=== PATIENT | female | born 1955 | race Caucasian/White ===

== ENCOUNTER 2017-03-04 11:11 | Emergency (ER) | payer MEDICARE ==
[~2017-03-04] VITALS: Ht 160 cm; Wt 84.0 kg
[~2017-03-04 11:11] MED LIST: AMLO5TAB22 PO; ASPI81TA82 PO; BACL20 PO; CARV6.252 PO; CYCL-36 PO; D32000TA PO; FAMO40TA PO; IBUP-232 PO; LASI20TA PO; MELO7.5 PO; MORP1INJ45 PO; NAPR-576 PO; NEUR800T PO; PERC10TA27 PO
[2017-03-04 11:15] VITALS: BP 195/110; PULSE 93; RESP 16; TEMP 98.4; O2SAT 97
[2017-03-04 11:25] LABS: BLOOD, URINE NEG (NEG); GLUCOSE,URINE NEG (NEG); KETONE, URINE NEG (NEG); NITRITE,URINE NEG (NEG)
[2017-03-04] MEDS ORDERED: ASPI-516 CHEW (11:25)
[2017-03-04] MEDS ORDERED: amLODIPine BESYLATE 5 MG TAB PO ONE (11:30)
[2017-03-04 11:31] LABS: COMMENT (UR) CULT NOT INDICATED; CULTURE IF INDICATED CULT NOT INDICATED; METHOD OF COLLECTION CLEAN CATCH; RBC, URINE 0-3 /hpf (0-3); SQUAMOUS EPITHELIAL CELL URINE 0-5 /hpf (0-5); URINE COLOR YELLOW (YELLW/STRAW)
[2017-03-04] MEDS ORDERED: SODIUM CHLOR 0.9% 1000 ML INJ 1,000 ML IV SCH (11:34)
--- NOTE | 2017-03-04 11:34 | PD ---
HPI Chief Complaint: Complaint Time Seen by Provider: 11:24 Travel History International Travel<30 days: No Contact w/Intl Traveler<30days: No Traveled to known affect area: No History of Present Illness HPI The patient is a 61-year-old female who presents emergency department for left flank pain. The patient notes left flank pain for the last 2 days, located left flank, associated with some dysuria, frequency, and urgency. The patient denies any hematuria. She does have a previous history of bladder infections, denies any known history of nephrolithiasis. She does complain of mild nausea but denies any vomiting, diarrhea, or abdominal pain. She denies any CC fever, chills, or sweats. The patient does have a history of hypertension, stopped taking Norvasc 5 mg daily approximately one year ago. She denies any current headache, chest pain, or shortness of breath. Symptoms are mild to moderate, possibly exacerbated by underlying kidney infection, and there are no current alleviating factors. The patient was seeing Dr Donaldson, however, has not seen Dr. Donaldson in over one years duration. PFSH Past Medical History Arthritis: Yes Anxiety: Yes Cerebrovascular Accident: Yes (2012) GERD: Yes Hypertension: Yes Migraines: Yes Menopausal: Yes Past Surgical History Appendectomy: Yes Cholecystectomy: Yes Other Surgery: Yes (left wrist x 2, left elbow, lumbar 3, 4) Social History Alcohol Use: Yes (occas. like once a week mix drinks) Tobacco Use: Yes (5-6 cigs a day/ trying to quit) Substance Use: No Allergies-Medications (Allergen,Severity, Reaction): Coded Allergies: benazepril (Unverified Allergy, Severe, HYPOTENSION, 03/04/17) captopril (Unverified Allergy, Severe, HYPOTENSION, 03/04/17) enalaprilat (Unverified Allergy, Severe, HYPOTENSION, 03/04/17) fosinopril (Unverified Allergy, Severe, HYPOTENSION, 03/04/17) lisinopril (Unverified Allergy, Severe, HYPOTENSION, 03/04/17) quinapril (Unverified Allergy, Severe, HYPOTENSION, 03/04/17) penicillin G (Unverified Allergy, Unknown, CANT REMEMBER PER PT, 03/04/17) Reported Meds & Prescriptions Reported Meds & Active Scripts Active Reported Aspirin 81 Mg Chew 81 Mg CHEW DAILY Review of Systems Except as stated in HPI: all other systems reviewed are Neg General / Constitutional: No: Fever, Chills HENT: No: Headaches, Lightheadedness Cardiovascular: No: Chest Pain or Discomfort Respiratory: No: Shortness of Breath Gastrointestinal: Positive: Nausea, No: Vomiting, Diarrhea, Abdominal Pain Genitourinary: Positive: Urgency, Frequency, Dysuria, Flank Pain, No: Hematuria , Pelvic Pain Skin: No Rash Physical Exam Narrative GENERAL: Awake, alert, pleasant 61-year-old female who appears her stated age and is in no acute respiratory distress. SKIN: Focused skin assessment warm/dry. No stigmata of shingles noted over the left flank. HEAD: Atraumatic. Normocephalic. EYES: Pupils equal and round. No scleral icterus. No injection or drainage. ENT: No nasal bleeding or discharge. Mucous membranes pink and moist. NECK: Trachea midline. No JVD. CARDIOVASCULAR: Regular rate and rhythm. No murmur appreciated. RESPIRATORY: No accessory muscle use. Clear to auscultation. Breath sounds equal bilaterally. GASTROINTESTINAL: Abdomen soft, non-tender, nondistended. No suprapubic tenderness. Back: No CVA tenderness. No pain elicited over palpation of the paravertebral muscles. Pain is not elicited with rotation, flexion, or extension of the thorax. MUSCULOSKELETAL: No obvious deformities. No clubbing. No cyanosis. No edema. NEUROLOGICAL: Awake and alert. No obvious cranial nerve deficits. Motor grossly within normal limits. Normal speech. PSYCHIATRIC: Appropriate mood and affect; insight and judgment normal. Data Data Last Documented VS Vital Signs Date Time Temp Pulse Resp B/P (MAP) Pulse Ox O2 Delivery O2 Flow Rate FiO2 03/04/17 12:06 18 96 Room Air 03/04/17 12:05 84 03/04/17 11:15 98.4 Orders Orders Urinalysis - C+S If Indicated (03/04/17 11:17) Amlodipine (Norvasc) (03/04/17 11:30) Complete Blood Count With Diff (03/04/17 11:34) Comprehensive Metabolic Panel (03/04/17 11:34) Lipase (03/04/17 11:34) Ct Abd/Pel W/O Iv Contrast (03/04/17 11:34) Iv Access Insert/Monitor (03/04/17 11:34) Ecg Monitoring (03/04/17 11:34) Oximetry (03/04/17 11:34) Ondansetron Inj (Zofran Inj) (03/04/17 11:45) Sodium Chlor 0.9% 1000 Ml Inj (Ns 1000 M (03/04/17 11:34) Sodium Chloride 0.9% Flush (Ns Flush) (03/04/17 11:45) Ketorolac Inj (Toradol Inj) (03/04/17 11:45) Labs Laboratory Tests Test 03/04/17 11:20 03/04/17 11:45 Urine Collection Type CLEAN CATCH Urine Color YELLOW Urine Turbidity CLEAR Urine pH 6.0 Urine Specific [place] 1.020 Urine Protein NEG mg/dL Urine Glucose (UA) NEG mg/dL Urine Ketones NEG mg/dL Urine Occult Blood NEG Urine Nitrite NEG Urine Bilirubin NEG Urine Leukocyte Esterase NEG Urine RBC 0-3 /hpf Urine Squamous Epithelial Cells 0-5 /hpf Microscopic Urinalysis Comment CULT NOT INDICATED Urine Collection Time 11:20 White Blood Count 7.9 TH/MM3 Red Blood Count 4.71 MIL/MM3 Hemoglobin 14.6 GM/DL Hematocrit 44.6 % Mean Corpuscular Volume 94.6 FL Mean Corpuscular Hemoglobin 31.1 PG Mean Corpuscular Hemoglobin Concent 32.9 % Red Cell Distribution Width 13.4 % Platelet Count 362 TH/MM3 Mean Platelet Volume 8.6 FL Neutrophils (%) (Auto) 54.4 % Lymphocytes (%) (Auto) 37.7 % Monocytes (%) (Auto) 4.9 % Eosinophils (%) (Auto) 1.8 % Basophils (%) (Auto) 1.2 % Neutrophils # (Auto) 4.3 TH/MM3 Lymphocytes # (Auto) 3.0 TH/MM3 Monocytes # (Auto) 0.4 TH/MM3 Eosinophils # (Auto) 0.1 TH/MM3 Basophils # (Auto) 0.1 TH/MM3 CBC Comment DIFF FINAL Differential Comment Blood Urea Nitrogen 16 MG/DL Creatinine 0.94 MG/DL Random Glucose 94 MG/DL Total Protein 8.0 GM/DL Albumin 3.9 GM/DL Calcium Level 9.3 MG/DL Alkaline Phosphatase 94 U/L Aspartate Amino Transf (AST/SGOT) 20 U/L Alanine Aminotransferase (ALT/SGPT) 39 U/L Total Bilirubin 0.4 MG/DL Sodium Level 139 MEQ/L Potassium Level 4.3 MEQ/L Chloride Level 106 MEQ/L Carbon Dioxide Level 27.9 MEQ/L Anion Gap 5 MEQ/L Estimat Glomerular Filtration Rate 60 ML/MIN Lipase 140 U/L MDM Medical Decision Making Medical Screen Exam Complete: Yes Emergency Medical Condition: Yes Medical Record Reviewed: Yes Interpretation(s) Laboratory Tests Test 03/04/17 11:20 03/04/17 11:45 Urine Collection Type CLEAN CATCH Urine Color YELLOW Urine Turbidity CLEAR Urine pH 6.0 Urine Specific [place] 1.020 Urine Protein NEG mg/dL Urine Glucose (UA) NEG mg/dL Urine Ketones NEG mg/dL Urine Occult Blood NEG Urine Nitrite NEG Urine Bilirubin NEG Urine Leukocyte Esterase NEG Urine RBC 0-3 /hpf Urine Squamous Epithelial Cells 0-5 /hpf Microscopic Urinalysis Comment CULT NOT INDICATED Urine Collection Time 11:20 White Blood Count 7.9 TH/MM3 Red Blood Count 4.71 MIL/MM3 Hemoglobin 14.6 GM/DL Hematocrit 44.6 % Mean Corpuscular Volume 94.6 FL Mean Corpuscular Hemoglobin 31.1 PG Mean Corpuscular Hemoglobin Concent 32.9 % Red Cell Distribution Width 13.4 % Platelet Count 362 TH/MM3 Mean Platelet Volume 8.6 FL Neutrophils (%) (Auto) 54.4 % Lymphocytes (%) (Auto) 37.7 % Monocytes (%) (Auto) 4.9 % Eosinophils (%) (Auto) 1.8 % Basophils (%) (Auto) 1.2 % Neutrophils # (Auto) 4.3 TH/MM3 Lymphocytes # (Auto) 3.0 TH/MM3 Monocytes # (Auto) 0.4 TH/MM3 Eosinophils # (Auto) 0.1 TH/MM3 Basophils # (Auto) 0.1 TH/MM3 CBC Comment DIFF FINAL Differential Comment Blood Urea Nitrogen 16 MG/DL Creatinine 0.94 MG/DL Random Glucose 94 MG/DL Total Protein 8.0 GM/DL Albumin 3.9 GM/DL Calcium Level 9.3 MG/DL Alkaline Phosphatase 94 U/L Aspartate Amino Transf (AST/SGOT) 20 U/L Alanine Aminotransferase (ALT/SGPT) 39 U/L Total Bilirubin 0.4 MG/DL Sodium Level 139 MEQ/L Potassium Level 4.3 MEQ/L Chloride Level 106 MEQ/L Carbon Dioxide Level 27.9 MEQ/L Anion Gap 5 MEQ/L Estimat Glomerular Filtration Rate 60 ML/MIN Lipase 140 U/L CT of the abdomen and pelvis reveals no renal calculi or hydronephrosis. Diverticulosis without diverticulitis. Status post cholecystectomy. The lower lungs are clear. Differential Diagnosis Differential diagnosis includes pyelonephritis, UTI, nephrolithiasis, diverticulitis, pancreatitis, shingles, lower lobe pneumonia. Narrative Course A UA was sent to lab. The patient was administered Norvasc 5 mg orally for pain. The patient's UA was negative, therefore, IV was established, labs are drawn and sent, and a noncontrast CT of the abdomen/pelvis was obtained. The patient's lower lungs are clear, no evidence of pneumonia. CT is negative for renal calculi, hydronephrosis, does reveal diverticulosis without diverticulitis , otherwise unremarkable except for chronic changes. UA was negative, no evidence of hematuria or infection. Lipase level is normal. Patient does have left mid back pain and flank pain, may be musculoskeletal in origin. The patient will be placed back on Norvasc for hypertension will be treated with hydrocodone and Norflex as needed for pain, is also advised to take over-the- counter ibuprofen as needed. She will be provided a copy of her CT results and lab results at discharge. He is advised to follow-up with her primary physician and return if symptoms worsen or progress. Diagnosis Primary Impression: Left flank pain Patient Instructions: General Instructions Additional Instructions: Please provide the patient a copy of her labs and CT results at discharge. Medications as directed. Follow-up with a primary physician. Return if symptoms worsen or progress. Med/Other Pt SpecificInfo: Prescription(s) given Scripts Amlodipine (Norvasc) 5 Mg Tab 5 MG PO DAILY for Blood Pressure Management, #30 TAB 2 Refills Prov: Ravi Mireles MD 03/04/17 Hydrocodone-Acetaminophen ([place]) 5 Mg-325 Mg Tab 1 TAB PO Q6H Y for PAIN, #12 TAB 0 Refills Prov: Ravi Mireles MD 03/04/17 Orphenadrine ER 12 HR (Orphenadrine CR) 100 Mg Tab 100 MG PO Q12HR for Muscle Spasm for 10 Days, #60 TAB 0 Refills Prov: Ravi Mireles MD 03/04/17 Disposition: 01 DISCHARGE HOME Condition: Stable Ravi Mireles MD Mar 04, 2017 11:34
[2017-03-04] MEDS ORDERED: SODIUM CHLORIDE 0.9% FLUSH 10 ML FLUSH IV FLUSH PRN (11:45)
[2017-03-04] MEDS ORDERED: KETOROLAC TROMETHAMINE 30 MG/ML (IVP) VIAL IVP ONE (11:45)
[2017-03-04] MEDS ORDERED: ONDANSETRON HCL 4 MG/2 ML VIAL IVP ONE (11:45)
[2017-03-04 11:54] LABS: AUTOMATED NEUTROPHIL # 4.3 TH/MM3 (1.8-7.7); BASOPHIL # 0.1 TH/MM3 (0-0.2); BASOPHIL % 1.2 % (0.0-2.0); EOSINOPHIL # 0.1 TH/MM3 (0-0.4); EOSINOPHIL % 1.8 % (0.0-4.0); HEMATOCRIT 44.6 % (35.0-46.0); LYMPH % 37.7 % (9.0-44.0); MEAN CELL VOLUME 94.6 FL (80.0-100.0); MEAN CORPUSCULAR HEMOGLOBIN 31.1 PG (27.0-34.0); MEAN CORPUSCULAR HGB CONC 32.9 % (32.0-36.0); MONO % 4.9 % (0.0-8.0); NEUT % 54.4 % (16.0-70.0); PLATELET COUNT 362 TH/MM3 (150-450); RED BLOOD COUNT 4.71 MIL/MM3 (4.00-5.30); RED CELL DISTRIBUTION WIDTH 13.4 % (11.6-17.2); WHITE BLOOD COUNT 7.9 TH/MM3 (4.0-11.0)
[2017-03-04 11:55] LABS: HEMO FLAGS DIFF FINAL
[2017-03-04 12:01] LABS: CHLORIDE 106 MEQ/L (98-107); POTASSIUM 4.3 MEQ/L (3.5-5.1); SODIUM (NA) 139 MEQ/L (136-145)
[2017-03-04 12:05] VITALS: BP 149/89; PULSE 84; RESP 18; O2SAT 96
[2017-03-04 12:05] LABS: ANION GAP 5 MEQ/L (5-15); BICARBONATE 27.9 MEQ/L (21.0-32.0); BLOOD UREA NITROGEN 16 MG/DL (7-18)
[2017-03-04 12:06] VITALS: RESP 18; O2SAT 96
[2017-03-04 12:07] LABS: ALT (GPT) 39 U/L (10-53)
--- NOTE | 2017-03-04 12:07 | RADRPT ---
EXAM DATE/TIME: 03/04/2017 11:48 [facility] COMPARISON: CT ABDOMEN & PELVIS W/O CONTRAST, May 26, 2015, 11:46. INDICATIONS : Left flank pain with urine frequency. Evaluate for renal stone. ORAL CONTRAST: No oral contrast ingested. RADIATION DOSE: 23.92 CTDIvol (mGy) MEDICAL HISTORY : Cerebrovascular disease. Hypertension. Gastroesophageal reflux disease. SURGICAL HISTORY : Appendectomy. Cholecystectomy. ENCOUNTER: Initial ACUITY: 2 days PAIN SCALE: 5/10 LOCATION: Left flank TECHNIQUE: Volumetric scanning of the abdomen and pelvis was performed. Using automated exposure control and ad justment of the mA and/or kV according to patient size, radiation dose was kept as low as reasonably achievable to obtain optimal diagnostic quality images. DICOM format image data is available electro nically for review and comparison. FINDINGS: LOWER LUNGS: The visualized lower lungs are clear. LIVER: Homogeneous density without lesion. There is no dilation of the biliary tree. Cholecystectomy. SPLEEN: Normal size without lesion. PANCREAS: Within normal limits. KIDNEYS: Normal in size and shape. There is no mass, stone, or hydronephrosis. ADRENAL GLANDS: Within normal limits. VASCULAR: There is no aortic aneurysm. BOWEL/MESENTERY: Diverticulosis without diverticulitis. There is no free intraperitoneal air or fluid. ABDOMINAL WALL: Within normal limits. RETROPERITONEUM: There is no lymphadenopathy. BLADDER: No wall thickening or mass. REPRODUCTIVE: Within normal limits. INGUINAL: There is no lymphadenopathy or hernia. MUSCULOSKELETAL: Gender changes and levoscoliosis lumbar spine. CONCLUSION: 1. No renal calculi or hydronephrosis. 2. Diverticulosis without diverticulitis. 3. Status post cholecystectomy. Ken Daley MD on March 04, 2017 at 12:02 Board Certified Radiologist. This report was verified electronically.
[2017-03-04 12:08] LABS: AST (GOT) 20 U/L (15-37); GLOMERULAR FILTRATION RATE 60 ML/MIN (>89)
[2017-03-04 12:09] LABS: TOTAL BILIRUBIN ADULT 0.4 MG/DL (0.2-1.0)
[2017-03-04 12:10] LABS: ALKALINE PHOSPHATASE 94 U/L (45-117)
[2017-03-04] MEDS ORDERED: ORPH100T2 PO (12:23)
[2017-03-04] MEDS ORDERED: AMLO5 PO (12:23)
[2017-03-04] MEDS ORDERED: NORC5TAB PO (12:23)
[2017-03-04] MEDS ORDERED: MORPHINE SULFATE 4 MG/ML INJ IV PUSH ONE (12:30)
[2017-03-04 12:44] VITALS: BP 147/84; PULSE 72; RESP 16; O2SAT 96
== END 2017-03-04 13:04 | disposition home or self-care (01) ==
LOC: PHED 11:11
DX: R10.9 Unspecified abdominal pain (principal); I10 Essential (primary) hypertension; I67.9 Cerebrovascular disease, unspecified; Z86.73 Personal history of transient ischemic attack (TIA), and cerebral infarction without residual deficits; F17.210 Nicotine dependence, cigarettes, uncomplicated; Z88.0 Allergy status to penicillin; Z79.82 Long term (current) use of aspirin
CPT/HCPCS: 74176; 80053; 81001; 83690; 85025; 96361; 96374; 96375; 99285; J1885; J2270; J2405; J7030